=== PATIENT | male | born 1950 | race Caucasian/White ===

== ENCOUNTER 2020-04-21 08:57 | Day surgery (SDC) | payer MEDICARE, OTHER ==
[~2020-04-21 08:57] MED LIST: Midazolam 1 MG/ML 2 ML SDV ONE; Propofol 200 MG/20 ML SDV ONE; fentaNYL 100 MCG/2 ML SDV ONE
[2020-04-21] MEDS ORDERED: Sodium Chloride 0.9% 1,000 ML IV SCH ×2 (09:30→10:00)
--- NOTE | 2020-04-21 14:25 | OR ---
DATE OF PROCEDURE: 04/21/2020 SURGEON: Keny Castro MD PROCEDURE: Colonoscopy. FINDINGS: Diverticulosis, mild, limited to sigmoid colon without evidence of diverticulitis or bleeding. RISKS: Risks, benefits, alternatives, and limitations including, but not limited to infection, bleeding, and perforation were explained to the patient, who wished to proceed. We also discussed false positives and false negatives. PREOPERATIVE DIAGNOSIS: Screening colonoscopy/history of gastrointestinal bleeding. POSTOPERATIVE DIAGNOSIS: Screening colonoscopy/history of gastrointestinal bleeding. PROCEDURE IN DETAIL: The patient was placed in left lateral decubitus position. Digital rectal exam was performed without abnormality. Scope was introduced and advanced atraumatically to the ileocecal valve. Scope was brought back through the ascending, transverse, descending colon, and retroflexed. No evidence of old or new blood. No masses. No polyps. Diverticulosis was described as mild. Small diverticula limited to sigmoid colon without evidence of bleeding or inflammation. No abnormalities on retroflexion. Greater than 8 minutes was used to remove the scope. Keny Castro MD /[id number]
== END 2020-04-21 12:14 | disposition home or self-care (01) ==
LOC: JP.SDS 08:57 → EEVIPCON 08:57 → JP.SDS 12:14
PROVIDERS: ATTEND Surgery
DX: Z12.11 Encounter for screening for malignant neoplasm of colon (principal); K57.30 Diverticulosis of large intestine without perforation or abscess without bleeding; Z87.19 Personal history of other diseases of the digestive system
CPT/HCPCS: G0121; J2250; J2704; J3010; J7030

== ENCOUNTER 2020-07-14 16:29 | Emergency (ER) | payer MEDICARE, OTHER ==
--- NOTE | 2020-07-14 17:31 | EDM.PDOC ---
<Pauly Townsend - Last Filed: 07/14/20 17:26> ED HPI GENERAL MEDICAL PROBLEM - General Chief Complaint: Genitourinary Problem Stated Complaint: FEVER/URINE INFECT? Time Seen by Provider: 07/14/20 17:26 Source of Information: Reports: Patient History Limitations: Reports: No Limitations - History of Present Illness INITIAL COMMENTS - FREE TEXT/NARRATIVE: pt has had 2 days of body aches and being sweaty. He woke up the nite before last and his lalito shirt was soaked. He has had slight urinary frequency and slight burning on urination. He has been slightly constipated. Onset: Other ( started 2 days ago. ) Duration: Hour(s): Location: Reports: Abdomen, Generalized Associated Symptoms: Reports: Diaphoresis (pt was chilling. He has recently traveled from [facility]. ), Other (pt has ) Pelvic Pain Score (Numeric/FACES): 2 - Related Data Allergies Allergy/AdvReac Type Severity Reaction Status Date / Time No Known Allergies Allergy Verified 07/14/20 16:55 Home Meds: Home Meds Calcium Carbonate 600 mg PO DAILY 04/21/20 [History] Cholecalciferol (Vitamin D3) [Vitamin D] 5,000 unit PO DAILY 04/21/20 [History] Glucosam/Maximo-Msm1/C/Pineda/Bosw [Glucosamine-Chondroitin Tablet] 1 each PO DAILY 04/21/20 [History] Magnesium 200 mg PO DAILY 04/21/20 [History] Multivitamin [Multivitamins] 1 tab PO DAILY 04/21/20 [History] [place]-3/DHA/Epa/Fish Oil [[place]-3 Fish Oil 1,200 MG Sfgl] 1,200 mg PO DAILY 04/21/20 [History] Ubidecarenone [Coenzyme Q10] 100 mg PO DAILY 04/21/20 [History] Vitamin B Complex Vit C No.3 [B Complex with Vitamin C] 1 each PO DAILY 04/21/20 [History] Past Medical History HEENT History: Reports: Hard of Hearing, Other (See Below) Other HEENT History: abscess tooth Cardiovascular History: Reports: High Cholesterol Respiratory History: Reports: None Gastrointestinal History: Reports: Colon Polyp, Diverticulosis Genitourinary History: Reports: BPH Musculoskeletal History: Reports: Arthritis, Fracture, Other (See Below) Other Musculoskeletal History: fractured toe Neurological History: Reports: None Psychiatric History: Reports: None Endocrine/Metabolic History: Reports: Obesity/BMI 30+ Hematologic History: Reports: Other (See Below) Other Hematologic History: vitamin D deficiency Immunologic History: Reports: None Oncologic (Cancer) History: Reports: Malignant Melanoma - Infectious Disease History Infectious Disease History: Reports: Chicken Pox, Measles - Past Surgical History GI Surgical History: Reports: Colonoscopy Dermatological Surgical History: Reports: Other (See Below) Social & Family History - Tobacco Use Tobacco Use Status *Q: Former Tobacco User Used Tobacco, but Quit: Yes Month/Year Tobacco Last Used: 30 years ago - Caffeine Use Caffeine Use: Reports: Soda - Recreational Drug Use Recreational Drug Use: No ED ROS GENERAL - Review of Systems Review Of Systems: See Below Constitutional: Reports: Chills, Malaise HEENT: Reports: No Symptoms Respiratory: Reports: No Symptoms Cardiovascular: Reports: No Symptoms Endocrine: Reports: No Symptoms GI/Abdominal: Reports: No Symptoms : Reports: Dysuria, Frequency Musculoskeletal: Reports: Other ( slight achiness) Skin: Reports: No Symptoms Neurological: Reports: No Symptoms ED EXAM, GI/ABD - Physical Exam Exam: See Below Text/Narrative:: pt arrived with a history of marked sweating chilling, urinary frequency Exam Limited By: No Limitations General Appearance: Alert, No Apparent Distress Ears: Normal TMs Nose: Normal Inspection Throat/Mouth: Normal Inspection Head: Atraumatic Neck: Normal Inspection Respiratory/Chest: No Respiratory Distress Cardiovascular: Regular Rate, Rhythm GI/Abdominal Exam: Soft, Non-Tender (Male) Exam: Deferred Rectal (Males) Exam: Deferred Back Exam: Normal Inspection Extremities: Normal Inspection Neurological: Alert, Oriented, Normal Cognition Psychiatric: Anxious Course - Re-Assessments/Exams Free Text/Narrative Re-Assessment/Exam: 07/14/20 17:34 urine will be cultured because of symptoms but the urine does not look remarkable. Departure - Departure Disposition: Home, Self-Care 01 Clinical Impression: Urinary frequency - Discharge Information Instructions: Urinary Frequency, Adult Referrals: Pierre Waters NP [Primary Care Provider] - Forms: ED Department Discharge Additional Instructions: Culture results will be available in 3 to 4 days however if you start to feel poorly before the culture results are available recommend starting the antibiotics follow-up with your primary care in the next 3 to 5 days if not better call return to the emergency department for worsening of symptoms Sepsis Event Note (ED) - Evaluation Sepsis Screening Result: No Definite Risk <OfficerKe - Last Filed: 07/14/20 18:38> ED EXAM, GI/ABD - Physical Exam Rectal (Males) Exam: Normal Exam, Normal Rectal Tone, Prostate Normal. No: Tenderness Course - Vital Signs Last Recorded V/S: Last Vital Signs Temp 100.2 F 07/14/20 16:55 Pulse 91 07/14/20 16:55 Resp 16 07/14/20 16:55 BP 138/81 07/14/20 16:55 Pulse Ox 100 07/14/20 16:55 - Orders/Labs/Meds Orders: Active Orders 24 hr Category Date Time Status CULTURE URINE [RM] Stat Lab 07/14/20 17:00 Received Labs: Laboratory Tests 07/14/20 07/14/20 07/14/20 Range/Units 16:53 17:36 17:36 WBC 11.6 H (4.5-11.0) K/uL RBC 4.64 (4.30-5.90) M/uL Hgb 12.8 (12.0-15.0) g/dL Hct 39.4 L (40.0-54.0) % MCV 85 (80-98) fL MCH 28 (27-31) pg MCHC 33 (32-36) % Plt Count 202 (150-400) K/uL Neut % (Auto) 78 H (36-66) % Lymph % (Auto) 11 L (24-44) % [place] % (Auto) 10 H (2-6) % Eos % (Auto) 0 L (2-4) % Baso % (Auto) 0 (0-1) % Sodium 133 L (140-148) mmol/L Potassium 4.2 (3.6-5.2) mmol/L Chloride 98 L (100-108) mmol/L Carbon Dioxide 26 (21-32) mmol/L Anion Gap 13.2 (5.0-14.0) mmol/L BUN 18 (7-18) mg/dL Creatinine 1.2 (0.8-1.3) mg/dL Est Cr Clr Drug Dosing 65.66 mL/min Estimated GFR (MDRD) > 60 (>60) Glucose 108 H (74-106) mg/dL Calcium 9.1 (8.5-10.1) mg/dL Urine Color Yellow (YELLOW) Urine Appearance Clear (CLEAR) Urine pH 6.5 (5.0-8.0) Ur Specific [place] 1.025 (1.008-1.030) Urine Protein Negative (NEGATIVE) mg/dL Urine Glucose (UA) Negative (NEGATIVE) mg/dL Urine Ketones Negative (NEGATIVE) mg/dL Urine Occult Blood Trace-lysed H (NEGATIVE) Urine Nitrite Negative (NEGATIVE) Urine Bilirubin Negative (NEGATIVE) Urine Urobilinogen 0.2 (0.2-1.0) EU/dL Ur Leukocyte Esterase Negative (NEGATIVE) Urine RBC 0-5 (0-5) Urine WBC Not seen (0-5) Ur Epithelial Cells Not seen Amorphous Sediment Not seen Urine Bacteria Rare Urine Mucus Not seen SARS CoV-2 RNA Rapid DARIANA 07/14/20 Range/Units 17:46 WBC (4.5-11.0) K/uL RBC (4.30-5.90) M/uL Hgb (12.0-15.0) g/dL Hct (40.0-54.0) % MCV (80-98) fL MCH (27-31) pg MCHC (32-36) % Plt Count (150-400) K/uL Neut % (Auto) (36-66) % Lymph % (Auto) (24-44) % [place] % (Auto) (2-6) % Eos % (Auto) (2-4) % Baso % (Auto) (0-1) % Sodium (140-148) mmol/L Potassium (3.6-5.2) mmol/L Chloride (100-108) mmol/L Carbon Dioxide (21-32) mmol/L Anion Gap (5.0-14.0) mmol/L BUN (7-18) mg/dL Creatinine (0.8-1.3) mg/dL Est Cr Clr Drug Dosing mL/min Estimated GFR (MDRD) (>60) Glucose (74-106) mg/dL Calcium (8.5-10.1) mg/dL Urine Color (YELLOW) Urine Appearance (CLEAR) Urine pH (5.0-8.0) Ur Specific [place] (1.008-1.030) Urine Protein (NEGATIVE) mg/dL Urine Glucose (UA) (NEGATIVE) mg/dL Urine Ketones (NEGATIVE) mg/dL Urine Occult Blood (NEGATIVE) Urine Nitrite (NEGATIVE) Urine Bilirubin (NEGATIVE) Urine Urobilinogen (0.2-1.0) EU/dL Ur Leukocyte Esterase (NEGATIVE) Urine RBC (0-5) Urine WBC (0-5) Ur Epithelial Cells Amorphous Sediment Urine Bacteria Urine Mucus SARS CoV-2 RNA Rapid DARIANA Negative Departure - Departure Time of Disposition: 18:37 Condition: Fair Sepsis Event Note (ED) - Focused Exam Vital Signs: Vital Signs Temp Pulse Resp BP Pulse Ox 07/14/20 16:55 100.2 F 91 16 138/81 100 - Assessment/Plan Plan: Assessment Acuity = acute Site and laterality = urinary urgency Etiology = unknown Manifestations = none Location of injury = Home Lab values = CBC, BMP, urinalysis unremarkable urine cultures pending Plan I did discuss options with him plan is to await the culture of the urine I did write him a hardcopy for Bactrim DS 1 tab p.o. twice daily x10 days if his culture is consistent with an infection this antibiotic should cover however if he starts to feel worse recommend starting antibiotic and then await for the culture follow-up primary care 3 to 5 days if no improvement This note was dictated using [email or web address] voice recognition software please call with any questions on syntax or grammar.
== END 2020-07-14 18:57 | disposition home or self-care (01) ==
LOC: JP.ED 16:29
DX: R35.0 Frequency of micturition (principal); Z20.828 Contact with and (suspected) exposure to other viral communicable diseases; E66.9 Obesity, unspecified; Z87.891 Personal history of nicotine dependence; Z79.899 Other long term (current) drug therapy; Z68.32 Body mass index [BMI] 32.0-32.9, adult
CPT/HCPCS: 36415; 80048; 81001; 85025; 87086; 99283; U0002